=== PATIENT | male | born 1950 | race Caucasian/White ===

== ENCOUNTER → 2019-07-07 11:38 | Day surgery (SDC) | payer BC ==
[~2019-07-07 11:38] MED LIST: Buffered Lidocaine 1% SYRIN* 1 ML/SYRINGE INTRADERM ONE; Bupivacaine 0.25% EPI 200,000* 30 ML SDV ONE; Dexamethasone IV* 4 MG/ML 1 ML (4 MG) ONE; DiMENhydriNATE IV* 50 MG/ML VIAL IV PUSH PRN; Glycopyrrolate IV* 0.2 MG/ML 1 ML VIAL ONE; HYDROmorphone INJ1* 1 MG/ML SYRINGE IV PRN; Ketorolac INJ* 30 MG/ML 1 ML VIAL ONE; Lactated Ringers 1000 ML Bag* 1,000 ML IV SCH; Midazolam* 1 MG/ML 2 ML VIAL (2 MG) ONE; Naloxone* 0.4 MG/ML 1 ML VIAL IV PRN; Neostigmine Methylsulfate* 3 MG/3 ML SYRINGE ONE; Ondansetron INJ* 2 MG/ML VIAL IV PRN; Ondansetron INJ* 2 MG/ML VIAL ONE; Propofol* 10 MG/ML 20 ML BTL ONE; Rocuronium* 10 MG/ML VIAL ONE; ceFAZolin 2 GM PREMIX in ORs 2 GM/50 ML BAG ONE; fentaNYL* 50 MCG/ML 2 ML VIAL (100 MCG VIAL) IV PRN; fentaNYL* 50 MCG/ML 2 ML VIAL (100 MCG VIAL) ONE; oxyCODONE/Acetamin 5/325 MG* TAB PO PRN
[2019-07-07 16:08] VITALS: BP 131/90
--- NOTE | 2019-07-08 00:59 | OP ---
CC: Yuniel Omalley MD * DATE OF OPERATION: 07/07/19 - [facility] DATE OF : 46 SURGEON: Ernie Montez MD [employer] SPECIALIST: ROBI Hart ANESTHESIOLOGIST: Mario Cruz MD ANESTHESIA: General endotracheal. PRE-OP DIAGNOSIS: Right inguinal hernia. POST-OP DIAGNOSIS: Right inguinal hernia. OPERATIVE PROCEDURE: Laparoscopic preperitoneal repair of right inguinal hernia with mesh. ESTIMATED BLOOD LOSS: Minimal. IV FLUIDS: Crystalloids. SPECIMENS: None. DRAINS: None. COMPLICATIONS: None. COUNTS: The instrument, needle, and sponge counts were correct. DESCRIPTION OF PROCEDURE: The patient was brought to the operating room and placed on the table supine. Sequential compression devices were placed on both lower extremities. General anesthesia was administered. Appropriate intravenous antibiotics were administered. A Zimmer catheter was placed. He was prepped and draped in usual sterile fashion. A time-out was performed. Local anesthetic was infiltrated into the skin and soft tissue prior to making each incision. A curvilinear infraumbilical incision was created. Subcutaneous tissues were divided with cautery. Rectus fascia was identified to the right of midline. This was incised transversely. The underlying muscles retracted laterally. A preperitoneal balloon dissector was placed down the level of pubic symphysis and insufflated under direct visualization, insufflating only the right side. This was subsequently removed and a 12-mm blunt port was placed and carbon dioxide was insufflated to a pressure of 12 mmHg. Under direct visualization, two 5-mm trocars were placed in the lower midline. Dissection proceeded from the midline laterally identifying the symphysis pubis and the Chance's ligament. The inferior epigastric vessels were identified and preserved anteriorly. The dissection proceeded lateral to the anterior superior iliac spine. The components of the spermatic cord were identified and preserved. Indirect inguinal hernia sac was identified. Cord structures were dissected free from this. The sac tore during the manipulation , but it was able to be reduced, twisted upon itself, and then it was clipped at its base and allowed to retract. The repair was then performed with Bard 3DMax medium sized patch, which was placed into the space and positioned to cover the direct, indirect, and femoral spaces, and was secured at Chance's ligament with a single tack using the CapSure. Subsequently, the ports were removed and then the 12-mm port was repositioned in the peritoneal cavity through the umbilical site in order to inspect the peritoneum. There was a small rent in the peritoneum and so a 5-mm portal was placed within the peritoneal cavity and the clip electricity trading analyst was used to close the peritoneal defect. The ports were then removed and carbon dioxide was then released. The umbilicus was closed with 0 Vicryl in 2 layers to approximate the posterior and anterior fascia. Skin incisions were closed with 4-0 Monocryl in subcuticular fashion. Steri-Strips were applied. The patient tolerated the procedure well. He was extubated and transferred to Recovery in stable condition. [id number] #: [id number] MTDD
== END | disposition home or self-care (01) ==
LOC: OR 11:38
PROVIDERS: ATTEND Surgery
DX: K40.90 Unilateral inguinal hernia, without obstruction or gangrene, not specified as recurrent (principal); E78.5 Hyperlipidemia, unspecified; I10 Essential (primary) hypertension; N40.0 Benign prostatic hyperplasia without lower urinary tract symptoms; Z86.010 Personal history of colon polyps; Z87.891 Personal history of nicotine dependence; L57.0 Actinic keratosis
CPT/HCPCS: C1781; J0690; J1100; J1885; J2250; J2405; J2704; J2710; J3010